=== PATIENT | male | born 1990 | race African-American/Black ===

== ENCOUNTER 2016-10-21 14:20 | Emergency (ER) | payer OTHER ==
[~2016-10-21] VITALS: Ht 177.8 cm; Wt 145.8 kg
[2016-10-21 15:02] LABS: HEMATOCRIT 49.4 % (38.0-50.0); MCH 25.2 PG (29.0-34.0); MCHC 33.4 G/DL (30.0-36.0); MCV 75.5 FL (86-99); MEAN PLAT.VOLUME 10.3 uM^3 (9.0-12.4); PLATELET COUNT 299 K/uL (156-360); RBC DIS.WIDTH-CV 14.9 % (11.8-14.6); RBC DIS.WIDTH-SD 40.9 % (39-53); RED BLOOD COUNT 6.54 M/uL (4.00-5.50); WHITE BLOOD COUNT 9.4 K/uL (4.1-10.2)
[2016-10-21 15:10] LABS: CHLORIDE 107 mEq/L (99-109); POTASSIUM 3.8 mEq/L (3.7-5.4); SODIUM 142 mEq/L (136-147)
[2016-10-21 15:11] LABS: GLUCOSE 98 mg/dL (70-99)
[2016-10-21 15:13] LABS: ANION GAP 11 MEQ/L (2-14)
[2016-10-21 15:16] LABS: UREA NITROGEN (BUN) 14 mg/dL (9-23)
[2016-10-21 15:23] LABS: TROP-I INTERPRETATION NEGATIVE; TROPONIN-I < 0.01 ng/mL (0.0-0.30)
[2016-10-21 15:35] LABS: GFR ESTIMATE (CALCULATED) > 59 mL/min/
[2016-10-21 18:13] LABS: D-DIMER ELISA < 0.15 mg/L FEU (< 0.57)
[2016-10-21 18:25] LABS: TROP-I INTERPRETATION NEGATIVE; TROPONIN-I < 0.01 ng/mL (0.0-0.30)
[2016-10-21] MEDS ORDERED: ZANTAC300 MG PO (19:12)
[2016-10-21 19:28] VITALS: BP 133/69
== END 2016-10-21 19:28 | disposition home or self-care (01) ==
LOC: EME 14:20
PROVIDERS: Physician Assistant
DX: R07.89 Other chest pain (principal); G47.30 Sleep apnea, unspecified; K21.9 Gastro-esophageal reflux disease without esophagitis; Z82.3 Family history of stroke
CPT/HCPCS: 71020; 80048; 83735; 84484; 85027; 85379; 93005; 99281; 99284

== ENCOUNTER 2016-10-23 01:18 | Emergency (ER) | payer OTHER ==
[~2016-10-23] VITALS: Ht 177.8 cm; Wt 145.4 kg
[~2016-10-23 01:18] MED LIST: ZANTAC300 MG PO
[2016-10-23 02:15] LABS: HEMATOCRIT 47.1 % (38.0-50.0); MCH 25.2 PG (29.0-34.0); MCHC 33.3 G/DL (30.0-36.0); MCV 75.5 FL (86-99); MEAN PLAT.VOLUME 10.5 uM^3 (9.0-12.4); PLATELET COUNT 273 K/uL (156-360); RBC DIS.WIDTH-CV 14.8 % (11.8-14.6); RBC DIS.WIDTH-SD 40.5 % (39-53); RED BLOOD COUNT 6.24 M/uL (4.00-5.50); WHITE BLOOD COUNT 10.2 K/uL (4.1-10.2)
[2016-10-23 02:27] LABS: CHLORIDE 106 mEq/L (99-109); POTASSIUM 3.8 mEq/L (3.7-5.4); SODIUM 138 mEq/L (136-147)
[2016-10-23 02:28] LABS: GLUCOSE 106 mg/dL (70-99)
[2016-10-23 02:30] LABS: ANION GAP 12 MEQ/L (2-14)
[2016-10-23 02:32] LABS: GFR ESTIMATE (CALCULATED) > 59 mL/min/
[2016-10-23 02:33] LABS: UREA NITROGEN (BUN) 15 mg/dL (9-23)
[2016-10-23 02:40] LABS: TROP-I INTERPRETATION NEGATIVE; TROPONIN-I < 0.01 ng/mL (0.0-0.30)
[2016-10-23] MEDS ORDERED: PRILOSEC20 MG PO (03:24)
[2016-10-23 03:40] VITALS: BP 107/70
== END 2016-10-23 03:58 | disposition home or self-care (01) ==
LOC: EME 01:18
PROVIDERS: Emergency Medicine
DX: R07.9 Chest pain, unspecified (principal); K21.9 Gastro-esophageal reflux disease without esophagitis
CPT/HCPCS: 71020; 80048; 84484; 85027; 93005; 99281; 99284

== ENCOUNTER 2016-10-24 21:27 | Emergency (ER) | payer OTHER ==
[~2016-10-24] VITALS: Ht 177.8 cm; Wt 144.1 kg
[~2016-10-24 21:27] MED LIST changes: +PRILOSEC20 MG PO
[2016-10-24 23:11] LABS: HEMATOCRIT 48.7 % (38.0-50.0); MCH 24.8 PG (29.0-34.0); MCHC 33.1 G/DL (30.0-36.0); MCV 75.2 FL (86-99); MEAN PLAT.VOLUME 10.5 uM^3 (9.0-12.4); PLATELET COUNT 306 K/uL (156-360); RBC DIS.WIDTH-CV 14.8 % (11.8-14.6); RED BLOOD COUNT 6.48 M/uL (4.00-5.50); WHITE BLOOD COUNT 10.3 K/uL (4.1-10.2)
[2016-10-24 23:27] LABS: CHLORIDE 105 mEq/L (99-109); SODIUM 140 mEq/L (136-147)
[2016-10-24 23:29] LABS: GLUCOSE 98 mg/dL (70-99)
[2016-10-24 23:30] LABS: ANION GAP 13 MEQ/L (2-14)
[2016-10-24 23:33] LABS: GFR ESTIMATE (CALCULATED) > 59 mL/min/
[2016-10-24 23:34] LABS: UREA NITROGEN (BUN) 14 mg/dL (9-23)
[2016-10-24 23:39] LABS: TROP-I INTERPRETATION NEGATIVE; TROPONIN-I < 0.01 ng/mL (0.0-0.30)
[2016-10-25 00:38] LABS: D-DIMER ELISA < 0.15 mg/L FEU (< 0.57)
[2016-10-25 00:52] LABS: TROP-I INTERPRETATION NEGATIVE; TROPONIN-I < 0.01 ng/mL (0.0-0.30)
[2016-10-25] MEDS ORDERED: PEPTO-BISM525 MG/15 PO (01:59)
[2016-10-25] MEDS ORDERED: ZANTAC150 MG PO (03:28)
[2016-10-25 03:52] VITALS: BP 132/90
== END 2016-10-25 03:56 | disposition home or self-care (01) ==
LOC: EME 21:27
PROVIDERS: Emergency Medicine
DX: R07.9 Chest pain, unspecified (principal)
CPT/HCPCS: 71020; 71275; 80048; 84484; 85027; 85379; 93005; 99281; 99285; J2405

== ENCOUNTER 2016-11-13 19:29 | Emergency (ER) | payer OTHER ==
[~2016-11-13] VITALS: Ht 175.3 cm; Wt 141.2 kg
[~2016-11-13 19:29] MED LIST changes: +PEPTO-BISM525 MG/15 PO; +ZANTAC150 MG PO
[2016-11-13 20:12] LABS: HEMATOCRIT 45.4 % (38.0-50.0); MCHC 33.3 G/DL (30.0-36.0); MCV 75.2 FL (86-99); MEAN PLAT.VOLUME 10.3 uM^3 (9.0-12.4); PLATELET COUNT 262 K/uL (156-360); RBC DIS.WIDTH-CV 14.4 % (11.8-14.6); RBC DIS.WIDTH-SD 39.3 % (39-53); RED BLOOD COUNT 6.04 M/uL (4.00-5.50); WHITE BLOOD COUNT 7.5 K/uL (4.1-10.2)
[2016-11-13 20:21] LABS: CHLORIDE 108 mEq/L (99-109); POTASSIUM 3.7 mEq/L (3.7-5.4); SODIUM 141 mEq/L (136-147)
[2016-11-13 20:22] LABS: GLUCOSE 109 mg/dL (70-99)
[2016-11-13 20:24] LABS: ANION GAP 10 MEQ/L (2-14)
[2016-11-13 20:26] LABS: GFR ESTIMATE (CALCULATED) > 59 mL/min/
[2016-11-13 20:27] LABS: UREA NITROGEN (BUN) 11 mg/dL (9-23)
[2016-11-13 20:34] LABS: TROP-I INTERPRETATION NEGATIVE; TROPONIN-I < 0.01 ng/mL (0.0-0.30)
[2016-11-13] MEDS ORDERED: HYCODAN SYRUP480 ML PO (20:40)
[2016-11-13] MEDS ORDERED: VENTOLIN HFA18 GM IH (20:40)
[2016-11-13 21:00] VITALS: BP 156/86
== END 2016-11-13 21:01 | disposition home or self-care (01) ==
LOC: EME 19:29
PROVIDERS: Nurse Practitioner Family
DX: J06.9 Acute upper respiratory infection, unspecified (principal); J40 Bronchitis, not specified as acute or chronic
CPT/HCPCS: 71020; 80048; 84484; 85027; 93005; 94640; 99281; 99284